=== PATIENT | female | born 1980 | race Caucasian/White ===

== ENCOUNTER 2020-06-02 21:38 | Emergency (ER) | payer MEDICAID ==
[~2020-06-02] VITALS: Ht 165.1 cm; Wt 83.0 kg
[2020-06-02 21:44] VITALS: Ht 165.1 cm; Wt 83.0 kg
[2020-06-02 22:35] LABS: BASOPHIL % 0.8 % (0-2); PLATELET COUNT 210 x10^3mcL (130-400)
[2020-06-02 22:36] LABS: RED CELL DISTRIBUTION WIDTH 15.3 % (11.5-14.5)
[2020-06-02 22:56] LABS: CALCIUM 8.6 mg/dL (8.5-10.1); CHLORIDE SERUM 104 mmol/L (98-107); GFR1 > 60 mL/min; GLUCOSE SERUM 117 mg/dL (74-106); POTASSIUM SERUM 4.8 mmol/L (3.5-5.1); SODIUM SERUM 139 mmol/L (136-145)
[2020-06-02 23:04] LABS: FREE T4 0.47 ng/dL (0.76-1.46); MAGNESIUM 2.2 mg/dL (1.8-2.4)
[2020-06-03 01:31] VITALS: BP 106/77
== END 2020-06-03 01:29 | disposition home or self-care (01) ==
LOC: ED 21:38
PROVIDERS: Emergency Medicine
DX: R20.8 Other disturbances of skin sensation (principal); E05.90 Thyrotoxicosis, unspecified without thyrotoxic crisis or storm
CPT/HCPCS: 84439

== ENCOUNTER 2020-12-01 00:41 | Emergency (ER) | payer MEDICAID ==
[~2020-12-01] VITALS: Ht 167.6 cm; Wt 82.1 kg
[2020-12-01 00:56] VITALS: Ht 167.6 cm; Wt 82.1 kg
[2020-12-01] MEDS ORDERED: ZOF4 PO (02:30)
[2020-12-01 02:37] VITALS: BP 109/75
== END 2020-12-01 02:37 | disposition home or self-care (01) ==
LOC: ED 00:41
DX: R10.33 Periumbilical pain (principal); R11.0 Nausea; E03.9 Hypothyroidism, unspecified
CPT/HCPCS: J1885; Q0162